=== PATIENT | male | born 1995 | race Asian ===

== ENCOUNTER 2019-03-29 03:10 | Emergency (ER) | payer OTHER ==
[~2019-03-29] VITALS: Ht 177.8 cm; Wt 68.0 kg
[2019-03-29 03:10] VITALS: BP 115/89
[2019-03-29] MEDS ORDERED: LORazepam 1 MG TAB PO ONE (03:20)
[2019-03-29 04:13] LABS: BASOPHILS % (AUTO) 0.3 % (0.0-2.0); EOSINOPHILS # (AUTO) 0.1 K/uL (0-0.4); EOSINOPHILS % (AUTO) 1.2 % (0.0-4.0); HEMATOCRIT 42.4 % (36-52); HEMOGLOBIN 14.1 g/dL (12.0-18.0); LYMPHOCYTES % (AUTO) 23.1 % (20.5-51.1); MEAN CORPUSCULAR HEMOGLOBIN 31 pg (27-31); MEAN CORPUSCULAR HGB CONC 33 g/dL (33-37); MEAN CORPUSCULAR VOLUME 94.3 fL (80-94); MONOCYTES # (AUTO) 0.5 K/uL (0.8-1.0); MONOCYTES % (AUTO) 6.1 % (1.7-9.3); NEUTROPHILS % (AUTO) 69.3 % (42.2-75.2); PLATELET COUNT (AUTO) 206 K/uL (140-450); RED BLOOD CELL COUNT(AUTO) 4.49 MIL/uL (4.20-6.10); RED CELL DISTRIBUTION WIDTH 13.2 % (11.6-13.7); WHITE BLOOD COUNT (AUTO) 8.6 K/uL (4.8-10.8)
[2019-03-29 04:23] LABS: ANION GAP 12.7 (8-16); CARBON DIOXIDE 28.4 mmol/L (21-32); POTASSIUM 3.1 mmol/L (3.5-5.1)
[2019-03-29 04:37] LABS: ALBUMIN 4.3 g/dL (3.4-5.0); TOTAL BILIRUBIN 0.4 mg/dL (0.0-1.0)
[2019-03-29 05:01] VITALS: BP 115/89
== END 2019-03-29 04:59 | disposition home or self-care (01) ==
LOC: MED 03:10
DX: F41.9 Anxiety disorder, unspecified (principal); Z88.7 Allergy status to serum and vaccine
CPT/HCPCS: 36415; 80053; 85025; 93005; 99284